=== PATIENT | male | born 1960 | race Caucasian/White ===

== ENCOUNTER 2023-09-03 09:30 | Outpatient (CLI) | payer OTHER ==
--- NOTE | 2023-09-03 20:21 | MRI Report ---
Shoulder RT WO CLINICAL HISTORY: 63 years of age, Male, SHOULDER PAIN. Comparison: No priors available Technique: Multiplanar, multisequence MRI of the right shoulder was performed without intravenous co ntrast. IV Contrast: Not Administered. Findings: Limited evaluation given patient motion. Osseous acromial outlet: Moderate degenerative changes of the acromioclavicular joint. Type II acromi on. No os acromiale. Moderate subacromial/subdeltoid bursitis. Rotator cuff muscles and tendons: In the supraspinatus, there is low-grade, bursal sided tear at the footprint of the anterior fiber. Mild tendinosis of the supraspinatus. Additional low-grade interstit ial tear at the posterior footprint of the supraspinatus. No high-grade tear of the supraspinatus. Sm all amount of fluid tracking along the infraspinatus tendon, suggestive of low-grade tear. The tendon of the teres minor is intact. Moderate fatty atrophy of the teres minor, without muscle edema. Mild tendinosis of the subscapularis, without tear. Labral and capsular structures: Anterior superior labral tear, with a small paralabral cyst about the anterior superior labrum. Additional multiple punctate paralabral cyst about the posterior and infer ior labrum, suggestive of posterior inferior labral tear. Biceps tendon and anchor: The intra-articular biceps tendon is extremely thinned, concerning for part ial thickness tear. The extra-articular biceps tendon is intact. Osseous and cartilaginous structures: Mild subchondral marrow edema in the posterior greater tuberosi ty, reactive. No acute fracture. Miscellaneous: No significant glenohumeral effusion. No intra-articular bodies. The remaining muscl es are normal in bulk without evidence of atrophy or edema. IMPRESSION: 1.Limited evaluation given patient motion. 2.Moderate degenerative changes of the acromioclavicular joint. Moderate subacromial/subdeltoid bursi tis. 3.Multifocal low-grade tear of the supraspinatus. Low-grade tear of the infraspinatus. 4.Moderate fatty atrophy of the teres minor without muscle edema. 5.Extensive labral tear with multiple small paralabral cysts. 6.Finding concerning for partial thickness tear of the intra-articular biceps tendon. Reviewed by: Karo Jules MD on 09/03/2023 8:20 PM PDT Approved by: Karo Jules MD on 09/03/2023 8:20 PM PDT Station ID: [id number]
--- NOTE | 2023-09-03 21:18 | MRI Report ---
Shoulder LT WO CLINICAL HISTORY: 63 years of age, Male, SHOULDER PAIN. Comparison: No priors available Technique: Multiplanar, multisequence MRI of the left shoulder was performed without intravenous con trast. IV Contrast: Not Administered. Findings: Osseous acromial outlet: Severe degenerative changes of the acromial clavicular joint. Inferior proje cting osteophyte of the acromioclavicular joint, resulting in mild mass effect on the mild the juncti on of the supraspinatus. Type I acromion. Mild subacromial/subdeltoid bursitis. No os acromiale. Rotator cuff muscles and tendons: Moderate tendinosis of the supraspinatus. The supraspinatus tendon is diminutive at the critical zone and the footprint. There is focal, bursal sided, near full-thickne ss tear about the footprint of the mid fiber of the supraspinatus (series 1025, image 12). Mild tendi nosis of the infraspinatus, without tear. The tendon of the teres minor is intact. There is mild fatt y atrophy of the teres minor. No muscle edema of the teres minor. Mild tendinosis of the subscapulari s, without tear. Labral and capsular structures: Near circumferential labral tear. Multiple clusters of paralabral cys t about the inferior labrum, with the largest measuring 2.3 cm. Edema within the rotator cuff interva l, suggestive of adhesive capsulitis. Biceps tendon and anchor: The extra-articular biceps tendon is intact. Mild tendinosis of the intra-a rticular biceps tendon. Osseous and cartilaginous structures: No acute fracture. Mild degenerative change of the glenohumeral joint. Miscellaneous: No significant glenohumeral effusion. No intra-articular bodies. The remaining muscl es are normal in bulk without evidence of atrophy or edema. IMPRESSION: 1.Severe degenerative changes of the acromioclavicular joint. 2.Diminutive supraspinatus tendon with focal, near full-thickness tear. 3.Mild fatty atrophy of the teres minor without muscle edema. 4.Near circumferential labral tear with multiple paralabral cysts, with the largest measuring 2.3 cm. 5.Findings suggestive of adhesive capsulitis. 6.Mild degenerative changes at glenohumeral joint. Reviewed by: Karo Jules MD on 09/03/2023 9:17 PM PDT Approved by: Karo Jules MD on 09/03/2023 9:17 PM PDT Station ID: [id number]
== END 2023-09-03 09:31 | disposition home or self-care (01) ==
LOC: DI 09:30
PROVIDERS: ATTEND Nurse Practitioner Family
DX: M19.011 Primary osteoarthritis, right shoulder (principal); M75.111 Incomplete rotator cuff tear or rupture of right shoulder, not specified as traumatic; M62.511 Muscle wasting and atrophy, not elsewhere classified, right shoulder; S43.431A Superior glenoid labrum lesion of right shoulder, initial encounter; M19.012 Primary osteoarthritis, left shoulder; M75.112 Incomplete rotator cuff tear or rupture of left shoulder, not specified as traumatic; S43.432A Superior glenoid labrum lesion of left shoulder, initial encounter